=== PATIENT | male | born 1955 | race Caucasian/White ===

== ENCOUNTER 2021-12-28 12:51 | Emergency (ER) | payer MEDICARE | END 2021-12-28 14:37 | disposition home or self-care (01) | LOC: LB.ED 12:51 | DX: R00.0 Tachycardia, unspecified (principal); I10 Essential (primary) hypertension; I25.10 Atherosclerotic heart disease of native coronary artery without angina pectoris; Z79.82 Long term (current) use of aspirin; Z88.8 Allergy status to other drugs, medicaments and biological substances | CPT/HCPCS: 36415; 80053; 84443; 84484; 93005; 93246; 93247; 99285-25 ==